=== PATIENT | female | born 1960 | race Caucasian/White ===

== ENCOUNTER 2017-07-14 06:50 | Day surgery (SDC) | payer BC ==
[2017-07-14] MEDS ORDERED: Lactated Ringers 1,000 ML IV SCH (07:15)
[2017-07-14] MEDS ORDERED: Propofol 200 MG/20 ML SDV ONE (07:52)
[2017-07-14] MEDS ORDERED: Midazolam 1 MG/ML 2 ML SDV ONE (07:53)
[2017-07-14] MEDS ORDERED: fentaNYL 100 MCG/2 ML SDV ONE (07:53)
[2017-07-14] MEDS ORDERED: Sodium Phosphate,Monobasic/Sodium Phosphate,Dibasic Enema 133 ML Bottle RECTAL ONE (08:25)
--- NOTE | 2017-07-14 11:13 | OR ---
DATE OF PROCEDURE: 07/14/2017 PREOPERATIVE DIAGNOSIS: History of colon polyps. POSTOPERATIVE DIAGNOSES: Small cecal polyp and history of colon polyps PROCEDURE: Colonoscopy to the cecum with biopsy resection of a small cecal polyp. SURGEON: Antonio Rasmussen MD. ANESTHESIA: IV anesthesia with monitored anesthesia care. INDICATION: This is a 56-year-old white female who is referred for a colonoscopy because of a history of colon polyps. She says she was told to have colonoscopies at least every 5 years; however, the last colonoscopy she had was at age 48, 8 years ago. I counseled her for a colonoscopy with possible biopsy and/or polypectomy including risks and alternatives, and she gave her informed consent to proceed. DESCRIPTION OF PROCEDURE: The patient was placed in the left lateral decubitus position. IV anesthesia was administered by the Anesthesia Service. Time-out was held. A rectal exam was performed, which was unremarkable. The flexible video Olympus colonoscope was introduced through her anus, up her rectum, and out her colon all the way to the cecum. Adjacent to the appendiceal orifice, we saw a small polyp, which was removed with a couple of bites of the biopsy forceps. The scope was then slowly withdrawn, examining the mucosa throughout. No additional mucosal abnormalities were noted. The scope was retroflexed in the rectum with the distal rectum appearing unremarkable. The scope was straightened and removed. She tolerated the procedure well. Antonio Rasmussen MD /[id number] MTDD
== END 2017-07-14 11:15 | disposition home or self-care (01) ==
LOC: JP.SDS 06:50
PROVIDERS: ATTEND Surgery
DX: Z12.11 Encounter for screening for malignant neoplasm of colon (principal); D12.0 Benign neoplasm of cecum; Z86.010 Personal history of colon polyps; Z98.51 Tubal ligation status; Z98.890 Other specified postprocedural states
CPT/HCPCS: 45380; A9270; J2250; J2704; J3010; J7120; 88305

== ENCOUNTER 2018-02-07 14:53 | Emergency (ER) | payer BC ==
--- NOTE | 2018-02-07 16:50 | EDM.PDOC ---
ED HPI GENERAL MEDICAL PROBLEM - General Chief Complaint: Genitourinary Problem Stated Complaint: BLADDER INFECTION Time Seen by Provider: 02/07/18 15:45 Source of Information: Reports: Patient History Limitations: Reports: No Limitations - History of Present Illness INITIAL COMMENTS - FREE TEXT/NARRATIVE: 57-year-old female with a history of chronic recurring lower pelvic pressure was out golfing this morning and had a very intense pain in the pelvic area, thought she may have a bladder infection so came in to be checked. It still uncomfortable, no fevers or chills, no bowel changes, no dysuria. Apparently she had a similar episode 15 years ago and went through a thorough evaluation and nothing was found. It still happens off and on but today was real bad. She still is uncomfortable. Duration: Hour(s): (symptoms have been ongoing for several hours) Location: Reports: Pelvis, Other (Perineal and groin area) Bladder Pain Score (Numeric/FACES): 9 - Related Data Allergies Allergy/AdvReac Type Severity Reaction Status Date / Time No Known Allergies Allergy Verified 02/07/18 15:48 Home Meds: Home Meds Acetaminophen/Caffeine [Excedrin Tension Headache] 1 tab PO ASDIRECTED PRN 07/11 [History] Betamethasone Valerate 1 applic TOP BID 07/11/17 [History] Calcipotriene [Dovonex 0.005% Crm] 1 applic TOP BID 07/11/17 [History] Clobetasol [Temovate 0.05% Crm] 1 applic TOP BID 07/11/17 [History] Fluocinolone Acetonide 1 applic TOP DAILY 07/11/17 [History] Fluocinolone Acetonide Oil 1 applic TOP DAILY 07/11/17 [History] Ketoconazole [Nizoral] 1 applic TOP Q72H 07/11/17 [History] Naproxen Sodium [Aleve] 220 mg PO DAILY PRN 07/11/17 [History] Triamcinolone Acetonide [Kenalog] 1 applic TOP BID 07/11/17 [History] Aspirin [Adult Low Dose Aspirin EC] 81 mg PO DAILY 07/14/17 [History] Past Medical History HEENT History: Reports: Other (See Below) Other HEENT History: "small stroke in left eye" Gastrointestinal History: Reports: Colon Polyp Genitourinary History: Reports: None INCIDENT COORDINATOR History: Reports: Musculoskeletal History: Reports: Fracture, Neck Pain, Chronic Neurological History: Reports: Migraines, Other (See Below) Other Neuro History: "slight stroke in left eye 2 months ago" Dermatologic History: Reports: Psoriasis - Infectious Disease History Infectious Disease History: Reports: Chicken Pox - Past Surgical History HEENT Surgical History: Reports: None GI Surgical History: Reports: Colonoscopy Female Surgical History: Reports: Tubal Ligation Neurological Surgical History: Reports: None Musculoskeletal Surgical History: Reports: Other (See Below) Other Musculoskeletal Surgeries/Procedures:: "torn ligament right knee" Dermatological Surgical History: Reports: Skin Biopsy Social & Family History - Family History Family Medical History: Noncontributory - Tobacco Use Smoking Status *Q: Never Smoker Second Hand Smoke Exposure: No - Caffeine Use Caffeine Use: Reports: Soda - Recreational Drug Use Recreational Drug Use: No ED ROS GENERAL - Review of Systems Review Of Systems: See Below Constitutional: Denies: Fever, Chills, Malaise Respiratory: Denies: Shortness of Breath Cardiovascular: Denies: Chest Pain GI/Abdominal: Reports: Abdominal Pain. Denies: Diarrhea, Nausea, Vomiting : Denies: Dysuria Skin: Reports: No Symptoms ED EXAM, GI/ABD - Physical Exam Exam: See Below Exam Limited By: No Limitations General Appearance: Alert, No Apparent Distress Eyes: Bilateral: Normal Appearance Respiratory/Chest: No Respiratory Distress GI/Abdominal Exam: Normal Bowel Sounds, Soft, Tender (Some vague discomfort palpating the pelvic area but no guarding) (Female) Exam: Normal External Exam, Cervix Motion Tenderness, Uterine Tenderness, Other (Patient seemed to be tender to palpation of the vaginal wall diffusely) Back Exam: No: CVA Tenderness (R), CVA Tenderness (L) Neurological: Alert, Oriented Course - Vital Signs Last Recorded V/S: Last Vital Signs Temp 96.3 F 02/07/18 15:48 Pulse 86 02/07/18 15:48 Resp 16 02/07/18 15:48 BP 143/85 H 02/07/18 15:48 Pulse Ox 98 02/07/18 15:48 - Orders/Labs/Meds Orders: Active Orders 24 hr Category Date Time Status UA W/MICROSCOPIC [URIN] Stat Lab 02/07/18 15:46 Ordered Labs: Laboratory Tests 02/07/18 Range/Units 15:46 Urine Color Yellow Urine Appearance Clear Urine pH 5.0 (4.5-8.0) Ur Specific [place] 1.030 (1.008-1.030) Urine Protein Negative (NEGATIVE) mg/dL Urine Glucose (UA) Normal (NEGATIVE) mg/dL Urine Ketones Negative (NEGATIVE) mg/dL Urine Occult Blood Negative (NEGATIVE) Urine Nitrite Negative (NEGATIVE) Urine Bilirubin Small (NEGATIVE) Urine Urobilinogen Normal (NORMAL) mg/dL Ur Leukocyte Esterase Negative (NEGATIVE) Urine RBC Not seen (0-5) Urine WBC Not seen (0-5) Ur Epithelial Cells Rare Amorphous Sediment Not seen Urine Bacteria Few Urine Mucus Few Urine Other - Re-Assessments/Exams Free Text/Narrative Re-Assessment/Exam: 02/07/18 16:48 UA returned normal. At that point we put the patient in the INCIDENT COORDINATOR room and did a pelvic exam. External genitalia were normal, pelvic exam digital and speculum exam are both very tender and there was some vaginal atrophy but just mild. Cervix appeared normal. Bimanual exam was very tender as well. Departure - Departure Time of Disposition: 17:05 Disposition: Home, Self-Care 01 Condition: Good Clinical Impression: Chronic pelvic pain in female - Discharge Information Instructions: Pelvic Pain, Female Referrals: Alma Tian MD [Primary Care Provider] - Forms: ED Department Discharge Care Plan Goals: Patient was discharged with 6 hydrocodone for extra pain control along with Aleve. This does not appear to be an inflammatory or infectious problem, but a chronic recurring functional pain. She is going to talk with Dr. Saldana about this next week. - My Orders Last 24 Hours: My Active Orders 02/07/18 15:46 UA W/MICROSCOPIC [URIN] Stat - Assessment/Plan Last 24 Hours: My Active Orders 02/07/18 15:46 UA W/MICROSCOPIC [URIN] Stat
== END 2018-02-07 17:05 | disposition home or self-care (01) ==
LOC: JP.ED 14:53
DX: R10.2 Pelvic and perineal pain (principal); G89.29 Other chronic pain; Z79.899 Other long term (current) drug therapy; Z79.82 Long term (current) use of aspirin
CPT/HCPCS: 81001; 99284

== ENCOUNTER 2021-09-07 20:17 | Emergency (ER) | payer BC ==
--- NOTE | 2021-09-07 20:38 | EDM.PDOC ---
ED HPI GENERAL MEDICAL PROBLEM - General Chief Complaint: Upper Extremity Injury/Pain Stated Complaint: FALL ANKLE & ELBOW PAIN Time Seen by Provider: 09/07/21 20:29 Source of Information: Reports: Patient History Limitations: Reports: No Limitations - History of Present Illness INITIAL COMMENTS - FREE TEXT/NARRATIVE: He is a 60-year-old female presenting to the ED for evaluation of injuries related to falling on a ceramic floor. She sustained an injury to her left elbow causing significant swelling over the olecranon and in the process of falling inverted her right foot causing pain to the lateral foot and ankle on the right. She has been able to ambulate but the foot is a bit touchy especially with inversion. She did apply ice immediately to the elbow but has a sizable amount of swelling over the olecranon bursa. She is able to move the elbow but it is painful. She is not on any blood thinners. She denies any other injuries. Left Elbow Pain Score (Numeric/FACES): 6 - Related Data Allergies Allergy/AdvReac Type Severity Reaction Status Date / Time No Known Allergies Allergy Verified 09/07/21 20:33 Home Meds: Home Meds Acetaminophen/Caffeine [Excedrin Tension Headache] 1 tab PO ASDIRECTED PRN 07/11/17 [History] Betamethasone Valerate 1 applic TOP BID 07/11/17 [History] Calcipotriene [Dovonex 0.005% Crm] 1 applic TOP BID 07/11/17 [History] Clobetasol [Temovate 0.05% Crm] 1 applic TOP BID 07/11/17 [History] Fluocinolone Acetonide 1 applic TOP DAILY 07/11/17 [History] Ketoconazole [Nizoral] 1 applic TOP Q72H 07/11/17 [History] Naproxen Sodium [Aleve] 220 mg PO DAILY PRN 07/11/17 [History] Triamcinolone Acetonide [Kenalog] 1 applic TOP BID 07/11/17 [History] fluocinolone acetonide oiL [Fluocinolone Acetonide Oil] 1 applic TOP DAILY 07/11/17 [History] Aspirin [Adult Low Dose Aspirin EC] 81 mg PO DAILY 07/14/17 [History] Past Medical History HEENT History: Reports: Other (See Below) Other HEENT History: "small stroke in left eye" Gastrointestinal History: Reports: Colon Polyp Genitourinary History: Reports: None ALUM OPERATOR History: Reports: Musculoskeletal History: Reports: Fracture, Neck Pain, Chronic Neurological History: Reports: Migraines, Other (See Below) Other Neuro History: "slight stroke in left eye 2 months ago" Dermatologic History: Reports: Psoriasis - Infectious Disease History Infectious Disease History: Reports: Chicken Pox - Past Surgical History HEENT Surgical History: Reports: None GI Surgical History: Reports: Colonoscopy Female Surgical History: Reports: Tubal Ligation Neurological Surgical History: Reports: None Musculoskeletal Surgical History: Reports: Other (See Below) Other Musculoskeletal Surgeries/Procedures:: "torn ligament right knee" Dermatological Surgical History: Reports: Skin Biopsy Social & Family History - Family History Family Medical History: No Pertinent Family History - Caffeine Use Caffeine Use: Reports: Soda Review of Systems - Review of Systems Review Of Systems: See Below Constitutional: Reports: No Symptoms Eyes: Reports: No Symptoms Musculoskeletal: Reports: Foot Pain (Right foot pain), Joint Pain (Left elbow and right ankle and foot), Joint Swelling (Left elbow is quite swollen, right ankle over the lateral malleolus is mildly swollen.) Skin: Reports: Bruising (Over the left elbow olecranon and the lateral right foreign t) Neurological: Reports: No Symptoms ED EXAM, GENERAL - Physical Exam Exam: See Below Exam Limited By: No Limitations General Appearance: Alert, Mild Distress Eye Exam: Bilateral Eye: EOMI, PERRL Head: Atraumatic, Normocephalic Neck: Normal Inspection, Supple Extremities: Normal Capillary Refill, Joint Swelling (Significant swelling and ecchymosis over the left elbow especially over the olecranon bursa. Tenderness with palpation over the medial and lateral epicondyles of the elbow. Tenderness and swelling over the lateral malleolus on the right.), Limited Range of Motion (Left elbow due to pain and swelling. Increased pain with flexion and inversion of the right ankle.) Neurological: Alert, Oriented, Normal Cognition, No Motor/Sensory Deficits Skin Exam: Warm, Dry, Ecchymosis (Over the left olecranon bursa and right lateral ankle.) Course - Vital Signs Last Recorded V/S: Last Vital Signs Temp 36.5 C 09/07/21 20:38 Pulse 86 09/07/21 20:38 Resp 17 09/07/21 20:38 BP 157/68 H 09/07/21 20:38 Pulse Ox 99 09/07/21 20:38 - Orders/Labs/Meds Orders: Active Orders 24 hr Category Date Time Status Consult to Orthopedic Clinic [CONS] Routine Cons 09/07/21 21:38 Ordered Ankle Min 3V Rt [CR] Stat Exams 09/07/21 20:33 Taken Elbow Min 3V Lt [CR] Stat Exams 09/07/21 20:33 Taken - Radiology Interpretation Free Text/Narrative:: I reviewed the three-view x-ray of the right ankle showing no acute osseous abnormalities. There is a mild amount of soft tissue swelling over the lateral malleolus. I reviewed the three-view x-ray of the left elbow showing no obvious fractures or dislocation, however, there is a small anterior fat pad that is worrisome for an occult fracture so we will send these images to [facility] for a formal read. - Re-Assessments/Exams Free Text/Narrative Re-Assessment/Exam: 09/07/21 21:33 is appear that the patient sustained an inversion sprain of the right ankle causing disruption or injury to the anterior talofibular ligament. We will put her in a walking boot to support the ankle for the next 7 days. She has considerable swelling over the olecranon bursa and has a mild anterior fat pad on my interpretation of the elbow x-ray on the left so we will send these images to [facility] for formal reading but I am concerned about an occult supracon dylar fracture. If this is in fact the case we will put her in a long arm posterior splint and sling and have her follow-up with Dr. Luong. If it is simply a traumatic olecranon bursitis we will have her in a simple sling and follow-up with Dr. Luong. 09/07/21 21:46 review of the x-ray from [facility] shows no fracture but soft tissue swelling over the olecranon bursa. We will put the patient in a simple sling and have her follow-up. She may take nonsteroidal anti-inflammatories for reducing pain and swelling. Ice and rest is also recommended. She will be contacted by orthopedic clinic for her appointment next week. Departure - Departure Time of Disposition: 21:46 Disposition: Home, Self-Care 01 Clinical Impression: Olecranon bursitis of left elbow Inversion sprain of right ankle Qualifiers: Encounter type: initial encounter Qualified Code(s): S93.401A - Sprain of unspecified ligament of right ankle, initial encounter Fall from standing Qualifiers: Encounter type: initial encounter Qualified Code(s): W19.XXXA - Unspecified fall, initial encounter - Discharge Information Instructions: Fall Prevention in the Home, Adult, Ankle Sprain, [id number], Elbow Bursitis Referrals: Klaudia Goldstein MD [Primary Care Provider] - Forms: ED Department Discharge Care Plan Goals: Your x-rays did not demonstrate any fractures. Recommend ice to the elbow and ankle to reduce swelling. You may take Tylenol, ibuprofen, or Aleve for pain control. I have arranged for you to follow-up with Dr. Luong in the orthopedic clinic next week for a recheck to ensure that you are healing properly. Use the walking boot when up and ambulating around to protect the ankle for the next 7 days. You may use the sling to help support the elbow for the same amount of time. Have a [place] and be careful of slippery floors. Sepsis Event Note (ED) - Focused Exam Vital Signs: Vital Signs Temp Pulse Resp BP Pulse Ox 09/07/21 20:38 36.5 C 86 17 157/68 H 99 09/07/21 20:37 36.5 C 86 17 157/68 H 99 - Problem List & Annotations (1) Inversion sprain of right ankle SNOMED Code(s): 13611828 Code(s): S93.401A - SPRAIN OF UNSPECIFIED LIGAMENT OF RIGHT ANKLE, INIT ENCNTR Status: Acute Priority: Medium Current Visit: Yes Qualifiers: Encounter type: initial encounter Qualified Code(s): S93.401A - Sprain of unspecified ligament of right ankle, initial encounter (2) Fall from standing SNOMED Code(s): 7640484 Code(s): W19.XXXA - UNSPECIFIED FALL, INITIAL ENCOUNTER Status: Acute Priority: Medium Current Visit: Yes Qualifiers: Encounter type: initial encounter Qualified Code(s): W19.XXXA - Unspecified fall, initial encounter (3) Olecranon bursitis of left elbow SNOMED Code(s): 881751854515341 Code(s): M70.22 - OLECRANON BURSITIS, LEFT ELBOW Status: Acute Priority: Medium Current Visit: Yes - Problem List Review Problem List Initiated/Reviewed/Updated: Yes - My Orders Last 24 Hours: My Active Orders 09/07/21 20:33 Ankle Min 3V Rt [CR] Stat Elbow Min 3V Lt [CR] Stat 09/07/21 21:38 Consult to Orthopedic Clinic [CONS] Routine - Assessment/Plan Last 24 Hours: My Active Orders 09/07/21 20:33 Ankle Min 3V Rt [CR] Stat Elbow Min 3V Lt [CR] Stat 09/07/21 21:38 Consult to Orthopedic Clinic [CONS] Routine
--- NOTE | 2021-09-07 21:45 | CRLCR ---
For Patients: As a result of the Cures Act, medical imaging exams and procedure reports are released immediately into your electronic medical record. You may view this report before your referring provider. If you have questions, please contact your health care provider. Indication: Fall Technique: Three views left elbow Comparison: No comparison Findings: Soft tissue swelling. Normal alignment. No definite effusion seen . No acute fracture. Dictated by Lois Gonsales MD @ 09/07/2021 9:44:50 PM (Electronically Signed)
--- NOTE | 2021-09-10 10:23 | CR ---
Ankle Min 3V Rt CLINICAL HISTORY: Fall, pain FINDINGS: No acute fracture or dislocation is noted. There are no osseous lesions. There is some mild narrowing of the tibiotalar joint. There is inferior calcaneal spurring as well as spurring at the Achilles insertion Impression: Osteoarthritic changes Calcaneal spurring No fracture
== END 2021-09-07 21:58 | disposition home or self-care (01) ==
LOC: JP.ED 20:17
DX: S93.401A Sprain of unspecified ligament of right ankle, initial encounter (principal); M70.22 Olecranon bursitis, left elbow; Z79.82 Long term (current) use of aspirin; X50.1XXA Overexertion from prolonged static or awkward postures, initial encounter
CPT/HCPCS: 73080-LT; 73610-26-RT; 73610-RT; 99283-25

== ENCOUNTER 2022-07-18 07:32 | Day surgery (SDC) | payer BC ==
[2022-07-18] MEDS: Sodium Chloride 0.9% 1,000 ML IV SCH (08:17)
[2022-07-18] MEDS ORDERED: Midazolam 1 MG/ML 2 ML SDV ONE (08:50)
[2022-07-18] MEDS ORDERED: fentaNYL 50 MCG/ML SDV ONE (08:50)
[2022-07-18] MEDS ORDERED: Propofol 200 MG/20 ML SDV ONE (08:51)
[2022-07-18] MEDS: Dicyclomine 10 MG Cap PO ONE (10:20)
== END 2022-07-18 11:36 | disposition home or self-care (01) ==
LOC: JP.SDS 07:32
PROVIDERS: ATTEND Surgery
DX: Z12.11 Encounter for screening for malignant neoplasm of colon (principal); D12.2 Benign neoplasm of ascending colon; K63.89 Other specified diseases of intestine; E78.5 Hyperlipidemia, unspecified; E66.9 Obesity, unspecified; R73.03 Prediabetes; Z88.8 Allergy status to other drugs, medicaments and biological substances
CPT/HCPCS: 45380; A9270; J2250; J2704; J3010; J7030

== ENCOUNTER 2023-07-29 08:29 | Emergency (ER) | payer BC, OTHER ==
[2023-07-29 09:15] LABS: BASOPHILS ABSOLUTE AUTO 0.06 K/uL (0.00-0.10); BASOPHILS PERCENT AUTO 0.9 % (0.1-1.3); EOSINOPHILS ABSOLUTE AUTO 0.19 K/uL (0.00-0.40); EOSINOPHILS PERCENT AUTO 2.9 % (0.0-5.4); HEMATOCRIT 42.3 % (34.3-46.0); HEMOGLOBIN 14.1 g/dL (11.2-15.5); IMMATURE GRAN ABSOLUTE AUTO 0.03 K/uL (0.00-0.23); IMMATURE GRAN PERCENT AUTO 0.5 % (0.0-0.7); LYMPHOCYTES ABSOLUTE AUTO 1.64 K/uL (0.8-3.3); LYMPHOCYTES PERCENT AUTO 25.4 % (11.4-47.7); MEAN CORPUSCULAR HGB CONC 33.3 g/dL (31.6-35.5); MEAN CORPUSCULAR VOLUME 80.9 fL (81.4-99.0); MONOCYTES ABSOLUTE AUTO 0.64 K/uL (0.20-0.90); MONOCYTES PERCENT AUTO 9.9 % (3.3-12.6); NEUTROPHILS PERCENT AUTO 60.4 % (40.0-78.1); PLATELET COUNT,PLT 182 K/uL (130-375); RED BLOOD CELL COUNT 5.23 M/uL (3.77-5.24); WHITE BLOOD CELL COUNT,WBC 6.5 K/uL (3.2-11.0)
[2023-07-29] MEDS ORDERED: Nitroglycerin 0.4 MG Tab.SL SL ONE (09:16)
[2023-07-29] MEDS ORDERED: Labetalol 20 MG/4 ML Syringe IVPUSH ONE (09:22)
[2023-07-29 09:28] LABS: PROTHROMBIN TIME 9.9 sec (9.2-10.6); PTT,PARTIAL THROMBOPLSTIN TIME 26.1 sec (21.8-27.3)
[2023-07-29 09:32] LABS: ANION GAP 14.2 mmol/L (5.0-14.0); CALCIUM 8.6 mg/dL (8.5-10.1); CREATININE 0.8 mg/dL (0.6-1.0); EST CRCL DRUG DOSING (CG) 56.19 mL/min; POTASSIUM,K 3.9 mmol/L (3.6-5.2); TROPONIN I HIGH SENSITIVITY 5.7 pg/mL (<=60.3)
[2023-07-29] MEDS ORDERED: Lisinopril 5 MG Tab PO ONE (10:19)
== END 2023-07-29 10:59 | disposition home or self-care (01) ==
LOC: JP.ED 08:29
DX: R07.89 Other chest pain (principal); E78.5 Hyperlipidemia, unspecified; I10 Essential (primary) hypertension; E11.9 Type 2 diabetes mellitus without complications; E78.00 Pure hypercholesterolemia, unspecified; Z79.899 Other long term (current) drug therapy; Z79.82 Long term (current) use of aspirin
CPT/HCPCS: 36415; 71045; 71045-26; 80048; 84484; 85025; 85379; 85610; 85730; 86140; 93005; 93010; 99284; 99285; A9270-GY

== ENCOUNTER 2023-12-25 20:52 | Emergency (ER) | payer MEDICARE ==
[2023-12-25 23:36] LABS: BASOPHILS ABSOLUTE AUTO 0.05 K/uL (0.00-0.10); BASOPHILS PERCENT AUTO 0.4 % (0.1-1.3); EOSINOPHILS ABSOLUTE AUTO 0.05 K/uL (0.00-0.40); EOSINOPHILS PERCENT AUTO 0.4 % (0.0-5.4); HEMATOCRIT 40.5 % (34.3-46.0); HEMOGLOBIN 13.4 g/dL (11.2-15.5); IMMATURE GRAN ABSOLUTE AUTO 0.06 K/uL (0.00-0.23); IMMATURE GRAN PERCENT AUTO 0.5 % (0.0-0.7); LYMPHOCYTES ABSOLUTE AUTO 1.04 K/uL (0.8-3.3); LYMPHOCYTES PERCENT AUTO 8.2 % (11.4-47.7); MEAN CORPUSCULAR HGB CONC 33.1 g/dL (31.6-35.5); MEAN CORPUSCULAR VOLUME 81.7 fL (81.4-99.0); MONOCYTES ABSOLUTE AUTO 0.68 K/uL (0.20-0.90); MONOCYTES PERCENT AUTO 5.3 % (3.3-12.6); NEUTROPHILS ABSOLUTE AUTO 10.85 K/uL (1.0-7.6); NEUTROPHILS PERCENT AUTO 85.2 % (40.0-78.1); PLATELET COUNT,PLT 206 K/uL (130-375); RED BLOOD CELL COUNT 4.96 M/uL (3.77-5.24); WHITE BLOOD CELL COUNT,WBC 12.7 K/uL (3.2-11.0)
[2023-12-25 23:55] LABS: PROTHROMBIN TIME 9.8 sec (9.2-10.6)
[2023-12-25 23:55] LABS: BILIRUBIN,URINE SMALL (NEGATIVE); COLOR,URINE YELLOW (YELLOW); GLUCOSE,URINE NEGATIVE (NEGATIVE); KETONES,URINE NEGATIVE (NEGATIVE); LEUKOCYTE ESTERASE,URINE TRACE (NEGATIVE); NITRITE,URINE NEGATIVE (NEGATIVE); OCCULT BLOOD,URINE NEGATIVE (NEGATIVE); PROTEIN,URINE NEGATIVE (NEGATIVE)
[2023-12-26 00:02] LABS: A/G RATIO 1.2 (1.2-2.2); ALANINE AMINOTRANSFERASE,ALT 294 U/L (12-78); ALBUMIN 4.3 g/dL (3.4-5.0); ALKALINE PHOSPHATASE 501 U/L (46-116); AMYLASE 42 U/L (25-115); ANION GAP 10.9 mmol/L (5.0-14.0); ASPARTATE AMNIOTRANSFERASE,AST 244 U/L (15-37); BILIRUBIN TOTAL 1.4 mg/dL (0.2-1.0); BLOOD UREA NITROGEN,BUN 25 mg/dL (7-18); C-REACTIVE PROTEIN 0.56 mg/dL (<0.50); CALCIUM 9.5 mg/dL (8.5-10.1); CARBON DIOXIDE,CO2 27 mmol/L (21-32); CHLORIDE,CL 103 mmol/L (100-108); EST CRCL DRUG DOSING (CG) 44.36 mL/min; ESTIMATED GFR 63 mL/min (>60); GLUCOSE RANDOM 186 mg/dL (74-106); MAGNESIUM 1.8 mg/dL (1.8-2.4); POTASSIUM,K 4.3 mmol/L (3.6-5.2); PROTEIN TOTAL,TP 7.8 g/dL (6.4-8.2); SODIUM,NA 141 mmol/L (140-148)
[2023-12-26 00:04] LABS: TROPONIN I HIGH SENSITIVITY < 4.0 pg/mL (<=60.3)
[2023-12-26 00:09] LABS: AMORPHOUS SEDIMENT,URINE NOT SEEN; APPEARANCE,URINE CLOUDY (CLEAR); BACTERIA,URINE MODERATE; EPITHELIAL CELLS,URINE MODERATE; MUCUS,URINE FEW; RBC,URINE 0-5 (0-5); WBC,URINE 30-40 (0-5)
[2023-12-26] MEDS: Ondansetron 4 MG/2 ML SDV IVPUSH ONE (00:37)
[2023-12-26] MEDS: Pantoprazole 40 MG Vial IVPUSH ONE (00:37)
[2023-12-26] MEDS: Sodium Chloride 0.9% 100 ML IV SCH (00:49)
[2023-12-26] MEDS: Iopamidol 612 MG/ML 100 ML Bottle IV SCH (00:49)
[2023-12-26] MEDS: Sodium Chloride 0.9% 10 ML Syringe FLUSH PRN (00:49)
[2023-12-26] MEDS: cefTRIAXone 2 GM in Sodium Chloride 0.9% 50 ML IV ONE (02:19)
== END 2023-12-26 03:45 | disposition home or self-care (01) ==
LOC: JP.ED 20:52
DX: K21.9 Gastro-esophageal reflux disease without esophagitis (principal); N30.00 Acute cystitis without hematuria; K83.8 Other specified diseases of biliary tract; E78.00 Pure hypercholesterolemia, unspecified; Z88.6 Allergy status to analgesic agent; Z79.899 Other long term (current) drug therapy; Z79.82 Long term (current) use of aspirin; Z86.19 Personal history of other infectious and parasitic diseases
CPT/HCPCS: 36415; 71046; 74177; 76705; 80053; 81001; 82150; 83605; 83690; 83735; 84484; 85025; 85610; 86140; 93005; 93010; 96365; 96375; 99283; 99284; C9113; J0696; J2405; J3490; Q9967

== ENCOUNTER 2024-05-18 02:22 | Emergency (ER) | payer MEDICARE ==
[2024-05-18 03:09] LABS: BASOPHILS ABSOLUTE AUTO 0.03 K/uL (0.00-0.10); BASOPHILS PERCENT AUTO 0.2 % (0.1-1.3); EOSINOPHILS PERCENT AUTO 0.1 % (0.0-5.4); HEMATOCRIT 41.8 % (34.3-46.0); HEMOGLOBIN 14.1 g/dL (11.2-15.5); IMMATURE GRAN ABSOLUTE AUTO 0.04 K/uL (0.00-0.23); IMMATURE GRAN PERCENT AUTO 0.3 % (0.0-0.7); LYMPHOCYTES ABSOLUTE AUTO 0.32 K/uL (0.8-3.3); LYMPHOCYTES PERCENT AUTO 2.5 % (11.4-47.7); MEAN CORPUSCULAR HEMOGLOBIN 26.8 pg (31.6-35.5); MEAN CORPUSCULAR HGB CONC 33.7 g/dL (31.6-35.5); MEAN CORPUSCULAR VOLUME 79.3 fL (81.4-99.0); MONOCYTES ABSOLUTE AUTO 0.56 K/uL (0.20-0.90); MONOCYTES PERCENT AUTO 4.4 % (3.3-12.6); NEUTROPHILS ABSOLUTE AUTO 11.65 K/uL (1.0-7.6); NEUTROPHILS PERCENT AUTO 92.5 % (40.0-78.1); PLATELET COUNT,PLT 145 K/uL (130-375); RED BLOOD CELL COUNT 5.27 M/uL (3.77-5.24); WHITE BLOOD CELL COUNT,WBC 12.6 K/uL (3.2-11.0)
[2024-05-18 03:10] LABS: EOSINOPHILS ABSOLUTE AUTO 0.01 K/uL (0.00-0.40)
[2024-05-18] MEDS: Sodium Chloride 0.9% 1,000 ML IV SCH (03:10)
[2024-05-18] MEDS: Alum Hydrox/Mag Hydrox/Simeth 15 ML, Lidocaine 2% 15 ML PO ONE (03:15)
[2024-05-18] MEDS: droPERidol 5 MG/2 ML SDV IVPUSH ONE (03:15)
[2024-05-18] MEDS: Sodium Chloride 0.9% 10 ML Syringe FLUSH PRN (03:16)
[2024-05-18 03:34] LABS: A/G RATIO 1.1 (1.2-2.2); ALANINE AMINOTRANSFERASE,ALT 578 U/L (12-78); ALBUMIN 4.1 g/dL (3.4-5.0); ALKALINE PHOSPHATASE 347 U/L (46-116); ASPARTATE AMNIOTRANSFERASE,AST 795 U/L (15-37); BILIRUBIN TOTAL 1.9 mg/dL (0.2-1.0); BLOOD UREA NITROGEN,BUN 14 mg/dL (7-18); CALCIUM 9.2 mg/dL (8.5-10.1); CARBON DIOXIDE,CO2 26 mmol/L (21-32); CHLORIDE,CL 102 mmol/L (100-108); CREATININE 1.1 mg/dL (0.6-1.0); EST CRCL DRUG DOSING (CG) 40.33 mL/min; ESTIMATED GFR 56 mL/min (>60); GLUCOSE RANDOM 237 mg/dL (74-106); PROTEIN TOTAL,TP 7.7 g/dL (6.4-8.2); SODIUM,NA 138 mmol/L (140-148)
[2024-05-18 03:35] LABS: TROPONIN I HIGH SENSITIVITY < 4.0 pg/mL (<=60.3)
[2024-05-18] MEDS: fentaNYL 100 MCG/2 ML SDV IVPUSH ONE (03:51)
[2024-05-18 04:26] LABS: APPEARANCE,URINE CLEAR (CLEAR); BILIRUBIN,URINE SMALL (NEGATIVE); COLOR,URINE YELLOW (YELLOW); GLUCOSE,URINE 500 mg/dL (NEGATIVE); KETONES,URINE 40 mg/dL (NEGATIVE); LEUKOCYTE ESTERASE,URINE NEGATIVE (NEGATIVE); NITRITE,URINE NEGATIVE (NEGATIVE); OCCULT BLOOD,URINE NEGATIVE (NEGATIVE); PROTEIN,URINE TRACE mg/dL (NEGATIVE)
[2024-05-18 04:32] LABS: AMORPHOUS SEDIMENT,URINE NOT SEEN; BACTERIA,URINE FEW; EPITHELIAL CELLS,URINE MODERATE; MUCUS,URINE FEW; RBC,URINE 0-5 (0-5); WBC,URINE 0-5 (0-5)
[2024-05-18] MEDS: Sodium Chloride 0.9% 10 ML Syringe FLUSH ONE (04:37)
[2024-05-18] MEDS: Sodium Chloride 0.9% 80 ML IV SCH (04:37)
[2024-05-18] MEDS: Iopamidol 612 MG/ML 100 ML Bottle IV SCH (04:37)
== END 2024-05-18 06:02 | disposition home or self-care (01) ==
LOC: JP.ED 02:22
DX: R10.31 Right lower quadrant pain (principal); E78.00 Pure hypercholesterolemia, unspecified; Z88.8 Allergy status to other drugs, medicaments and biological substances; Z79.899 Other long term (current) drug therapy
CPT/HCPCS: 36415; 74177; 80053; 81001; 83605; 83690; 84484; 85025; 96361; 96374; 96375; 99284; A9270; J1790; J3010; J3490; J7030; Q9967

== ENCOUNTER 2024-05-19 07:59 | Day surgery (SDC) | payer MEDICAID, MEDICARE ==
[2024-05-19] MEDS ORDERED: fentaNYL 50 MCG/ML SDV ONE (08:42)
[2024-05-19] MEDS ORDERED: Midazolam 1 MG/ML 2 ML SDV ONE (08:42)
[2024-05-19] MEDS ORDERED: Propofol 200 MG/20 ML SDV ONE (08:42)
[2024-05-19] MEDS: Sodium Chloride 0.9% 1,000 ML IV SCH (08:44)
== END 2024-05-19 11:17 | disposition home or self-care (01) ==
LOC: JP.SDS 07:59
PROVIDERS: ATTEND Surgery
DX: K29.50 Unspecified chronic gastritis without bleeding (principal); I10 Essential (primary) hypertension; E78.5 Hyperlipidemia, unspecified; E11.9 Type 2 diabetes mellitus without complications
CPT/HCPCS: 00731; 43239; J2250; J2704; J3010; J7030; 88305; 88342

== ENCOUNTER 2024-05-25 08:04 | Day surgery (SDC) | payer MEDICAID, MEDICARE ==
[~2024-05-25 08:04] MED LIST: Indocyanine Green 25 MG SDV ONE; Lidocaine 1% with EPINEPHrine 1:100,000 50 ML MDV ONE
[2024-05-25] MEDS ORDERED: fentaNYL 250 MCG/5 ML SDV ONE (08:17)
[2024-05-25] MEDS ORDERED: Propofol 200 MG/20 ML SDV ONE (08:18)
[2024-05-25] MEDS ORDERED: Dexamethasone 4 MG/ML SDV ONE (08:18)
[2024-05-25] MEDS ORDERED: Rocuronium 50 MG/5 ML Vial ONE ×2 (08:18→10:08)
[2024-05-25] MEDS ORDERED: Glycopyrrolate 0.2 MG/ML 5 ML MDV ONE (08:18)
[2024-05-25] MEDS ORDERED: Ondansetron 4 MG/2 ML SDV ONE (08:18)
[2024-05-25 08:42] LABS: HEMATOCRIT 38.7 % (34.3-46.0); HEMOGLOBIN 13.2 g/dL (11.2-15.5); MEAN CORPUSCULAR HEMOGLOBIN 26.3 pg (31.6-35.5); MEAN CORPUSCULAR HGB CONC 34.1 g/dL (31.6-35.5); MEAN CORPUSCULAR VOLUME 77.1 fL (81.4-99.0); RED BLOOD CELL COUNT 5.02 M/uL (3.77-5.24); WHITE BLOOD CELL COUNT,WBC 7.1 K/uL (3.2-11.0)
[2024-05-25] MEDS: Sodium Chloride 0.9% 1,000 ML IV SCH (08:44)
[2024-05-25] MEDS: Indocyanine Green 25 MG SDV IV ONE (09:03)
[2024-05-25 09:05] LABS: A/G RATIO 0.9 (1.2-2.2); ALANINE AMINOTRANSFERASE,ALT 196 U/L (12-78); ALBUMIN 3.5 g/dL (3.4-5.0); ALKALINE PHOSPHATASE 388 U/L (46-116); ANION GAP 8.1 mmol/L (5.0-14.0); ASPARTATE AMNIOTRANSFERASE,AST 59 U/L (15-37); BILIRUBIN TOTAL 0.8 mg/dL (0.2-1.0); BLOOD UREA NITROGEN,BUN 13 mg/dL (7-18); CALCIUM 9.8 mg/dL (8.5-10.1); CARBON DIOXIDE,CO2 29 mmol/L (21-32); CHLORIDE,CL 104 mmol/L (100-108); CREATININE 0.9 mg/dL (0.6-1.0); EST CRCL DRUG DOSING (CG) 49.29 mL/min; ESTIMATED GFR 71 mL/min (>60); GLUCOSE RANDOM 175 mg/dL (74-106); POTASSIUM,K 3.6 mmol/L (3.6-5.2); PROTEIN TOTAL,TP 7.5 g/dL (6.4-8.2); SODIUM,NA 141 mmol/L (140-148)
[2024-05-25] MEDS: metroNIDAZOLE/Normal Saline 500 MG in Premix Bag 1 BAG IV ONE (09:42)
[2024-05-25] MEDS ORDERED: ceFAZolin 2 GM in Sodium Chloride 0.9% 50 ML IV ONE (10:00)
[2024-05-25] MEDS: ceFAZolin 2 GM in Premix Bag 1 BAG IV ONE (10:20)
[2024-05-25] MEDS: Ropivacaine 35 ML, dexAMETHasone 8 MG, EPINEPHrine 0.4 MG, Sodium Chloride 0.9% 42.6 ML NERVRT SCH (10:30)
[2024-05-25] MEDS ORDERED: Labetalol 20 MG/4 ML Syringe ONE (10:33)
[2024-05-25] MEDS: Bupivacaine 0.5% 50 ML MDV ONE (10:40)
[2024-05-25] MEDS ORDERED: Lactated Ringers 1,000 ML ONE (11:06)
[2024-05-25] MEDS: hydrOXYzine HCL 100 MG/2 ML SDV IM ONE (12:05)
[2024-05-25] MEDS: fentaNYL 50 MCG/ML SDV IVPUSH ONE (12:05)
[2024-05-25] MEDS: Acetaminophen/HYDROcodone 325-5 MG Tab PO PRN (13:12)
== END 2024-05-25 15:00 | disposition home or self-care (01) ==
LOC: JP.SDS 08:04 → EDSEX 12:00 → MERGE 12:00 → JP.SDS 15:00
PROVIDERS: ATTEND Surgery
DX: K81.1 Chronic cholecystitis (principal); I10 Essential (primary) hypertension; E11.9 Type 2 diabetes mellitus without complications; E78.5 Hyperlipidemia, unspecified; Z79.899 Other long term (current) drug therapy
CPT/HCPCS: 00790; 36415; 47563; 80053; 82947; 85027; 88304; A9270; J0171; J0665; J0690; J1100; J1596; J1836; J1920; J2405; J2704; J2795; J3010; J3410; J3490; J7030; J7120